=== PATIENT | female | born 1990 | race Caucasian/White ===

== ENCOUNTER 2020-12-24 11:33 | Emergency (ER) | payer OTHER ==
[2020-12-24 13:07] LABS: HEMOGLOBIN 13.8 gm/dl (12.3-15.3); RED BLOOD COUNT 4.96 M/UL (4.00-5.10); WHITE BLOOD COUNT 5.6 K/UL (4.5-11.0)
[2020-12-24 13:53] LABS: BUN/CREATININE RATIO 26 (0-10)
[2020-12-24] MEDS ORDERED: BENTYL 20MG TAB20 MG PO (14:37)
[2020-12-24] MEDS ORDERED: PROTONIX40 MG PO (14:37)
[2020-12-24] MEDS ORDERED: ZOFRAN4 MG PO (14:37)
== END 2020-12-24 14:46 | disposition home or self-care (01) ==
LOC: ER1 11:33
PROVIDERS: Physician Assistant
DX: R19.7 Diarrhea, unspecified (principal); R10.11 Right upper quadrant pain; R10.12 Left upper quadrant pain; R11.0 Nausea; F41.9 Anxiety disorder, unspecified; F32.9 Major depressive disorder, single episode, unspecified; R10.13 Epigastric pain; Z87.442 Personal history of urinary calculi; Z79.899 Other long term (current) drug therapy
CPT/HCPCS: 80053; 81001; 82150; 83690; 84703; 85025; 96374; 99284; J2405; Q9967

== ENCOUNTER 2021-02-16 15:23 | Emergency (ER) | payer OTHER ==
[~2021-02-16 15:23] MED LIST: BENTYL 20MG TAB20 MG PO; PROTONIX40 MG PO; ZOFRAN4 MG PO
[2021-02-16 16:06] LABS: HEMOGLOBIN 12.8 gm/dl (12.3-15.3); RED BLOOD COUNT 4.52 M/UL (4.00-5.10); WHITE BLOOD COUNT 7.1 K/UL (4.5-11.0)
[2021-02-16 17:33] LABS: BUN/CREATININE RATIO 13 (0-10)
[2021-02-16] MEDS ORDERED: BUSPIRONE HCL5 MG PO (19:57)
== END 2021-02-16 20:30 | disposition home or self-care (01) ==
LOC: ER1 15:23
PROVIDERS: Physician Assistant
DX: R07.89 Other chest pain (principal); R79.1 Abnormal coagulation profile; F41.0 Panic disorder [episodic paroxysmal anxiety]; Z79.899 Other long term (current) drug therapy
CPT/HCPCS: 71045; 80053; 82550; 82553; 83874; 84484; 84703; 85025; 85379; 93005; 96372; 99285; J3410; Q9967